=== PATIENT | female | born 2000 | race Caucasian/White ===

== ENCOUNTER 2021-03-20 19:08 | Emergency (ER) | payer BC ==
[2021-03-20] MEDS ORDERED: Metoclopramide 10 MG/2 ML SDV IVPUSH ONE (20:18)
[2021-03-20] MEDS ORDERED: Sodium Chloride 0.9% 10 ML Syringe FLUSH PRN (20:18)
[2021-03-20] MEDS ORDERED: Sodium Chloride 0.9% 1,000 ML IV ONE (20:18)
== END 2021-03-20 21:47 | disposition home or self-care (01) ==
LOC: JD.ED 19:08
DX: O98.511 Other viral diseases complicating pregnancy, first trimester (principal); U07.1 COVID-19; Z3A.08 8 weeks gestation of pregnancy; Z88.0 Allergy status to penicillin
CPT/HCPCS: 87635; 87804; 96374; 99283; J2765; J7030; U0002

== ENCOUNTER 2021-04-30 07:09 | Day surgery (SDC) | payer SELFPAY ==
[~2021-04-30 07:09] MED LIST: Doxycycline 100 MG Cap PO SCH; Lidocaine 1%/Sod Bicarbonate in NS 8.4% 1 ML Syringe IDERM PRN; Sodium Chloride 0.9% 10 ML Syringe FLUSH PRN; Sodium Chloride 0.9% 10 ML Syringe FLUSH SCH
[2021-04-30] MEDS: Lactated Ringers 1,000 ML IV SCH ×2 (07:35→11:41)
[2021-04-30] MEDS ORDERED: Midazolam 1 MG/ML 2 ML SDV ONE (07:38)
[2021-04-30] MEDS ORDERED: fentaNYL 100 MCG/2 ML SDV ONE (07:38)
[2021-04-30] MEDS ORDERED: Propofol 200 MG/20 ML SDV ONE (07:38)
[2021-04-30] MEDS ORDERED: Lidocaine 1% 4 ML ONE (07:39)
[2021-04-30] MEDS ORDERED: Ondansetron 4 MG/2 ML SDV ONE (07:42)
[2021-04-30] MEDS ORDERED: Methylergonovine 0.2 MG/1 ML Amp ONE (07:49)
[2021-04-30] MEDS ORDERED: Ketorolac 30 MG/ML SDV ONE (08:25)
[2021-04-30] MEDS ORDERED: Dexamethasone 4 MG/ML 5 ML MDV ONE (08:27)
[2021-04-30] MEDS ORDERED: Ondansetron 4 MG/2 ML SDV IVPUSH PRN (08:47)
[2021-04-30] MEDS ORDERED: HYDROmorphone 0.5 MG/0.5 ML Syringe IVPUSH PRN (08:47)
[2021-04-30] MEDS ORDERED: fentaNYL 100 MCG/2 ML SDV IVPUSH PRN (08:47)
[2021-04-30] MEDS ORDERED: Misoprostol 200 MCG Tab PO ONE (08:49)
[2021-04-30 10:37] LABS: C. TRACHOMATIS BY PCR NOT DETECTED; N. GONORRHOEAE BY PCR NOT DETECTED
== END 2021-04-30 10:20 | disposition home or self-care (01) ==
LOC: JD.SDS 07:09
PROVIDERS: ATTEND Obstetrics & Gynecology
DX: O02.1 Missed abortion (principal); Z88.0 Allergy status to penicillin; Z79.899 Other long term (current) drug therapy; Z87.891 Personal history of nicotine dependence
CPT/HCPCS: 59820; 81003; 81025; 87491; 87591; A9270; J1100; J1885; J2250; J2405; J2704; J3010; J7120; 01965; J2210

== ENCOUNTER 2022-06-15 11:32 | Inpatient (IN) | payer SELFPAY ==
[2022-06-15] MEDS ORDERED: Sodium Chloride 0.9% 10 ML Syringe FLUSH PRN (12:24)
[2022-06-15] MEDS ORDERED: Ondansetron 4 MG/2 ML SDV IVPUSH PRN (12:24)
[2022-06-15] MEDS ORDERED: Ampicillin 2 GM in Sodium Chloride 0.9% 100 ML IV ONE (12:24)
[2022-06-15] MEDS ORDERED: Nalbuphine 10 MG/0.5 ML Syringe IVPUSH PRN (12:24)
[2022-06-15] MEDS ORDERED: Oxytocin/Lactated Ringers 10 UNIT/1,000 ML BAG IV SCH (12:30)
[2022-06-15] MEDS: Lactated Ringers 1,000 ML IV SCH ×3 (13:16→23:18)
[2022-06-15] MEDS: Ampicillin 1 GM in Sodium Chloride 0.9% 100 ML IV SCH ×2 (17:33→23:15)
[2022-06-15] MEDS: Bupivacaine/fentaNYL/NS 100 ML Bag EPIDUR PRN (19:30)
[2022-06-15] MEDS ORDERED: diphenhydrAMINE 50 MG/ML SDV IVPUSH PRN (19:31)
[2022-06-15] MEDS ORDERED: ePHEDrine 50 MG/ML SDV IVPUSH PRN (19:31)
[2022-06-15] MEDS ORDERED: fentaNYL 100 MCG/2 ML SDV EPIDUR PRN (19:31)
[2022-06-15] MEDS ORDERED: Sodium Chloride 0.9% 100 ML ONE (20:40)
[2022-06-15] MEDS ORDERED: Sodium Chloride 0.9% 10 ML Syringe FLUSH SCH (21:00)
[2022-06-15] MEDS ORDERED: Labetalol 100 MG Tab PO STA (23:04)
[2022-06-16] MEDS: Ampicillin 1 GM in Sodium Chloride 0.9% 100 ML IV SCH ×2 (01:39→05:32)
[2022-06-16] MEDS: Bupivacaine/fentaNYL/NS 100 ML Bag EPIDUR PRN (02:21)
[2022-06-16] MEDS ORDERED: Ropivacaine 0.2% PF 2 MG/ML 20 ML SDV ONE (04:00)
[2022-06-16] MEDS: Lactated Ringers 1,000 ML IV SCH (04:00)
[2022-06-16] MEDS: Oxytocin/Lactated Ringers 10 UNIT/1,000 ML BAG IV SCH ×2 (06:05→07:11)
[2022-06-16] MEDS ORDERED: Misoprostol 200 MCG Tab ONE (06:57)
[2022-06-16] MEDS ORDERED: Misoprostol 200 MCG Tab PO STA (07:03)
[2022-06-16] MEDS ORDERED: Benzocaine/Menthol 20%-0.5% Spray 78 GM Cannister TOP PRN (07:48)
[2022-06-16] MEDS ORDERED: Acetaminophen 325 MG Tab PO PRN (07:48)
[2022-06-16] MEDS ORDERED: Witch Hazel Medicated Pads 40/Jar TOP PRN (07:48)
[2022-06-16] MEDS: Prenatal Multivitamin with Calcium/Folic Acid/Iron Tab PO SCH (10:07)
[2022-06-16] MEDS: Ibuprofen 600 MG Tab PO PRN (20:09)
[2022-06-16] MEDS: Docusate Sodium 100 MG Cap PO PRN (20:10)
[2022-06-17] MEDS: Ibuprofen 600 MG Tab PO PRN (08:22)
[2022-06-17] MEDS: Docusate Sodium 100 MG Cap PO PRN (08:23)
[2022-06-17] MEDS: Prenatal Multivitamin with Calcium/Folic Acid/Iron Tab PO SCH (08:23)
[2022-06-18] MEDS: Ibuprofen 600 MG Tab PO PRN (08:37)
[2022-06-18] MEDS: Prenatal Multivitamin with Calcium/Folic Acid/Iron Tab PO SCH (08:37)
[2022-06-18] MEDS: Docusate Sodium 100 MG Cap PO PRN (08:39)
== END 2022-06-18 11:15 | disposition home or self-care (01) | DRG 807 ==
LOC: JD.OBCHECK 11:32 → JD.OB 11:34 → JD.OBCHECK 12:24 → JD.OB 12:24 → OBSVTOIN 06-16 05:59 → JD.OB 06-16 06:00
PROVIDERS: ADMIT Obstetrics & Gynecology; ATTEND Obstetrics & Gynecology
PROC: 10D07Z6 Extraction of Products of Conception, Vacuum, Via Natural or Artificial Opening (ICD-10-PCS; principal; 2022-06-16)
PROC: 0UQGXZZ Repair Vagina, External Approach (ICD-10-PCS; 2022-06-16)
PROC: 0UQMXZZ Repair Vulva, External Approach (ICD-10-PCS; 2022-06-16)
PROC: 3E0R3BZ Introduction of Anesthetic Agent into Spinal Canal, Percutaneous Approach (ICD-10-PCS; 2022-06-16)
PROC: 00HU33Z Insertion of Infusion Device into Spinal Canal, Percutaneous Approach (ICD-10-PCS; 2022-06-16)
DX: O99.824 Streptococcus B carrier state complicating childbirth (principal); Z37.0 Single live birth; Z3A.38 38 weeks gestation of pregnancy; O70.0 First degree perineal laceration during delivery
CPT/HCPCS: 01967; 36415; 51701; 51702; 59025; 59409; 82565; 82570; 83615; 84112; 84156; 84450; 84460; 84520; 84550; 85025; 85362; 85384; 86592; 86850; 86900; 86901; A9270-GY; J0290; J2405; J2590; J2795; J3490; J7120

== ENCOUNTER 2024-05-28 10:03 | Emergency (ER) | payer SELFPAY ==
[2024-05-28] MEDS ORDERED: Sodium Chloride 0.9% 10 ML Syringe FLUSH PRN (10:22)
[2024-05-28 10:42] LABS: BASOPHILS ABSOLUTE AUTO 0.1 K/mm3 (0.0-0.2); BASOPHILS PERCENT AUTO 0.7 % (0.0-1.0); EOSINOPHILS ABSOLUTE AUTO 0.1 K/mm3 (0.0-0.4); EOSINOPHILS PERCENT AUTO 1.5 % (0.0-6.0); HEMATOCRIT 40.6 % (37.0-47.0); HEMOGLOBIN 14.2 gm/dl (12.0-16.0); IMMATURE GRAN ABSOLUTE AUTO 0.02 K/mm3 (0.00-0.05); IMMATURE GRAN PERCENT AUTO 0.3 % (0.0-0.4); LYMPHOCYTES ABSOLUTE AUTO 2.1 K/mm3 (1.0-4.8); LYMPHOCYTES PERCENT AUTO 29.6 % (24.0-44.0); MEAN CORPUSCULAR HEMOGLOBIN 32.2 pg (28.0-32.0); MEAN CORPUSCULAR VOLUME 92.1 fl (83.0-99.0); MEAN PLATELET VOLUME 9.8 fl (9.4-12.3); MONOCYTES ABSOLUTE AUTO 0.5 K/mm3 (0.0-0.8); MONOCYTES PERCENT AUTO 7.2 % (0.0-8.0); NEUTROPHILS ABSOLUTE AUTO 4.4 K/mm3 (1.8-7.7); NEUTROPHILS PERCENT AUTO 60.7 % (41.0-71.0); PLATELET COUNT,PLT 277 K/mm3 (150-400); RED BLOOD CELL COUNT 4.41 M/mm3 (4.10-5.30)
[2024-05-28 11:01] LABS: A/G RATIO 1.1 (1-2); ALBUMIN 3.9 g/dl (3.4-5.0); ANION GAP 14.9 (5-15); BILIRUBIN TOTAL 0.4 mg/dL (0.2-1.0); BUN/CREATININE RATIO 11.3 (14-18); CALCIUM 8.8 mg/dL (8.5-10.1); CREATININE 0.8 mg/dL (0.55-1.02); EST CRCL DRUG DOSING (CG) 85.83 mL/min; POTASSIUM,K 3.9 mEq/L (3.5-5.1); PROTEIN TOTAL,TP 7.4 g/dl (6.4-8.2)
[2024-05-28 11:37] LABS: APPEARANCE,URINE CLEAR (Clear); BILIRUBIN,URINE NEGATIVE (Negative); COLOR,URINE YELLOW (Yellow); GLUCOSE,URINE NEGATIVE (Negative); KETONES,URINE NEGATIVE (Negative); LEUKOCYTE ESTERASE,URINE NEGATIVE (Negative); NITRITE,URINE NEGATIVE (Negative); OCCULT BLOOD,URINE NEGATIVE (Negative); PROTEIN,URINE NEGATIVE (Negative); UROBILINOGEN,URINE 0.2 (0.2-1.0)
[2024-05-28 11:48] LABS: BACTERIA,URINE FEW /hpf (FEW); EPITHELIAL CELLS,URINE 0-5 /hpf (0-5); MUCUS,URINE NOT SEEN /hpf (FEW); RBC,URINE NOT SEEN /hpf (0-5); WBC,URINE 0-5 /hpf (0-5)
== END 2024-05-28 12:38 | disposition home or self-care (01) ==
LOC: JD.ED 10:03
DX: N83.201 Unspecified ovarian cyst, right side (principal); M54.50 Low back pain, unspecified
CPT/HCPCS: 36415; 74176; 74176-26; 80053; 81001; 83690; 84703; 85025; 99284